=== PATIENT | male | born 1960 | race Caucasian/White ===

== ENCOUNTER 2025-03-19 08:48 | Day surgery (SDC) | payer MEDICARE ==
[~2025-03-19] VITALS: Ht 185.4 cm; Wt 103.0 kg
[~2025-03-19 08:48] MED LIST: IBLOOD GLUCOSE TEST STRIP 1 EA TEST VI PRN; LACTATED RINGER'S 1,000 ML IV SCH; LIDOCAINE HCL 1% 5 ML SDV INJ ONE; LIDOCAINE HCL 2% 5 ML SDV ONE
[2025-03-19 08:55] VITALS: BP 148/95
--- NOTE | 2025-03-19 10:56 | NUR ---
03/19/25 1056 Sheets,Marilyn 1039 PT ARRIVED TO PACU ON 2L VIA NC, PT RESTING ON LEFT SIDE AND IS ASLEEP. RESP EVEN AND UNLABORED. HOB INCREASED SLIGHTLY.
[2025-03-19 11:29] VITALS: BP 133/94
== END 2025-03-19 11:38 | disposition home or self-care (01) ==
LOC: DS 08:48
PROVIDERS: ATTEND Surgery
PROC: 0DJD8ZZ Inspection of Lower Intestinal Tract, Via Natural or Artificial Opening Endoscopic (ICD-10-PCS; principal; 2025-03-19 09:40)
DX: Z12.11 Encounter for screening for malignant neoplasm of colon (principal); K64.0 First degree hemorrhoids
CPT/HCPCS: 00811; J2003; J2704; J7121